=== PATIENT | male | born 1975 | race African-American/Black ===

== ENCOUNTER 2019-07-28 08:14 | Emergency (ER) | payer MEDICAID, OTHER ==
[~2019-07-28] VITALS: Ht 180.3 cm; Wt 72.6 kg
[2019-07-28 08:56] VITALS: BP 154/88
[2019-07-28] MEDS ORDERED: KETOROLAC TROMETH 60MG/2ML VIAL IM ONE (09:30)
== END 2019-07-28 10:09 | disposition home or self-care (01) ==
LOC: ER 08:17
DX: S33.5XXA Sprain of ligaments of lumbar spine, initial encounter (principal); X50.1XXA Overexertion from prolonged static or awkward postures, initial encounter; Y93.89 Activity, other specified; Y92.89 Other specified places as the place of occurrence of the external cause; Y99.8 Other external cause status
CPT/HCPCS: 96372; 99283; J1885